=== PATIENT | female | born 1950 | race Caucasian/White ===

== ENCOUNTER 2017-07-29 12:35 | Emergency (ER) | payer MEDICARE, OTHER ==
[~2017-07-29] VITALS: Ht 172.7 cm; Wt 86.4 kg
[2017-07-29 12:35] VITALS: BP 155/84; PULSE 80; RESP 15; O2SAT 97
--- NOTE | 2017-07-29 12:38 | ED.REPORT ---
HPI-Syncope Date of Service Jul 29, 2017 ED Provider: Hari Fox MD A 67 year old female with a history of hypertension is brought to the ED via EMS due to positional dizziness. [place] when she began to experience a spinning sensation after standing. She had felt slightly unwell prior to this with a mild headache, but was not especially concerned. The dizziness began when she walked off of the bus and continued until she sat down. The spinning sensation is worsened by standing but not affected by turning her head. The pt denies difficulty speaking, numbness, weakness, chest pain, abdominal pain, shortness of breath or decreased fluid intake. Paramedics found the pt to be dizzy and diaphoretic while doing posturals. The pt fell one month ago with facial trauma, but a CT at the time was negative. Her dose of Lisinopril was cut in half by her PCP 1.5 weeks ago. She reports similar symptoms when she became hypotensive following surgery ten years ago. During our discussion when having her sit up she denies feeling tunnel vision the description of her symptoms. Nursing Notes Stated Complaint: NEAR SYNCOPE Nursing Notes Reviewed: Yes Allergies: Coded Allergies: morphine (Verified Allergy, Unknown, 07/29/17) oxycodone (Verified Adverse Reaction, Intermediate, 07/29/17) General Time Seen by Provider: 12:37 Chief Complaint Other (Dizziness) Hx Obtained From: Patient, EMS Arrived By: Ambulance Onset Occurred: 1 - 4 hours ago Symptom Duration: Intermittent Recent Healthcare: No recent hospitalization Similar Sx Previous: Yes Past Medical History Past Medical History Reports: Hypertension Past Surgical History knee surgery Reports: Appendectomy, Cholecystectomy, Hysterectomy Smoking History Unknown if Ever Smoker Social History Other Social History: Good social support Ambulatory Status Independent Review of Systems Review of Systems Note: denies decreased fluid intake denies difficulty speaking Respiratory: Denies: Non-productive cough, Shortness of breath Cardiovascular: Denies: Chest pain GI: Denies: Abdominal pain, Vomiting Skin: Reports Diaphoresis, Denies Rash Neurologic: Reports: Dizziness, Headache, Denies: Numbness, Weakness Complete sys rev & neg: except as marked. Physical Exam Initial Vital Signs Vital Signs (First) Date Time Temp Pulse Resp B/P Pulse Ox O2 Delivery O2 Flow Rate FiO2 07/29/17 12:35 36.4 80 15 155/84 97 Room Air Initial VS: Reviewed General/Constitutional: Awake, Alert sat pt up and she reported tunnel vision Respiratory / Chest: Atraumatic, Breath sounds NL, Breath sounds = bilat, No respiratory distress Cardiovascular: Heart rate NL, Regular rhythm, Heart sounds NL Lower Extremity / Pelvis / MS: Atraumatic, Full range of motion Neurologic: Oriented X3, Speech NL, No motor deficits, No sensory deficits, CN II - XII intact Head / Eyes: Atraumatic, Normocephalic, PERRL, EOMI fast phase nystagmus to the left no abnormal skew ENT: Atraumatic, Airway patent, Mucous membranes moist Neck: Atraumatic, Supple, Full range of motion Abdomen: Atraumatic, Soft, Non-tender Back: Atraumatic, Full range of motion Skin: Atraumatic, Color NL, No rash, Warm, Dry Psychiatric: Affect NL, Mood NL Upper Extremity / MS: Atraumatic, Full range of motion Interpretation & Diagnostics Interpretation & Diagnostics: CT Angiogram Chest PE: IMPRESSION: 1. No visualized pulmonary embolism. 2. Minimal appearance of increased pulmonary vascularity without consolidations or effusions. Dictated by: Esthela Simms M.D. on 07/29/2017 at 14:07 Approved by: Esthela Simms M.D. on 07/29/2017 at 14:14 Lab Results Interpretation Result Diagram: 07/29/17 1245 07/29/17 1245 Test 07/29/17 12:45 White Blood Count 12.4th/mm3 (3.8-10.1) Red Blood Count 5.13mil/mm3 (3.90-5.20) Hemoglobin 14.7g/dL (12.0-15.6) Hematocrit 43.3% (35.0-46.0) Mean Corpuscular Volume 84.4fL (81-100) Mean Corpuscular Hemoglobin 28.7pg (27.0-35.0) Mean Corpuscular Hemoglobin Concent 33.9% (32.0-37.0) Red Cell Distribution Width 13.3% (12.3-15.4) Platelet Count 307bil/L (150-400) Neutrophils (%) (Auto) 49.7% (40-74) Lymphocytes (%) (Auto) 38.3% (14-46) Monocytes (%) (Auto) 7.6% (4-12) Eosinophils (%) (Auto) 3.2% (0-5) Basophils (%) (Auto) 0.6% (0-3) D-Dimer 0.98mg/L FEU (<0.50) Sodium Level 134mEq/L (134-144) Potassium Level 4.2mEq/L (3.5-5.2) Chloride Level 93mEq/L (97-108) Carbon Dioxide Level 22mmol/L (18-29) Blood Urea Nitrogen 23mg/dL (8-27) Creatinine 1.27mg/dL (0.57-1.00) Estimat Glomerular Filtration Rate 60mL/min (>59) Glucose Level 91mg/dL (60-99) Calcium Level 9.4mg/dL (8.5-10.1) Magnesium Level 1.4mg/dL (1.6-2.6) Total Bilirubin 0.3mg/dL (0.0-1.2) Aspartate Amino Transf (AST/SGOT) 24U/L (0-50) Alanine Aminotransferase (ALT/SGPT) 23U/L (0-32) Alkaline Phosphatase 109U/L (25-165) Troponin T < 0.010ug/L (0.0-0.011) Pro-B-Type Natriuretic Peptide 100.3pg/mL (0-301) Total Protein 8.4g/dL (6.4-8.4) Albumin 4.4g/dL (3.4-5.0) ECG Interpretation ECG Interpretation: normal sinus rhythm with a rate of 72 abnormal R-wave progression, early transition Time: 13:18 Interpreted by: ED physician X-Ray Chest Interpretation Chest Xray Interpretation: IMPRESSION: Negative chest. No acute cardiopulmonary process is evident. Dictated by: Feng Narayan M.D. on 07/29/2017 at 12:05 Approved by: Feng Narayan M.D. on 07/29/2017 at 12:06 Interpretation / Wet Read by: Interpret - Radiologist CT Head Interpretation IMPRESSION: No acute intracranial abnormalities. Dictated by: Vance Bhatia M.D. on 07/29/2017 at 14:09 Approved by: Vance Bhatia M.D. on 07/29/2017 at 14:11 Interpretation / Wet Read by: Interpret - Radiologist Re-Eval/Medical Decision Med Decision/Clinical Course Neurologically intact, does not sound like a stroke, patient has positional dizziness with associated tunnel vision I suspect this is from hypovolemia, after IV fluids she is feeling much better. Instructed to follow very closely with her PCP. Return in follow-up precautions given. Re-Evaluation/Progress : Time of Eval: 14:58 Patient Status: Condition improved Re-Evaluation/Progress Note: Pt rechecked, who is comfortable. She has passed her road test. The diagnosis and plan for discharge are discussed. The pt understands and agrees with the plan. All questions are addressed at this time. Counseled Regarding: Diagnosis, Lab results, Need for follow-up, When/why to return to ED Discharge & Departure Impression: Primary Impression: Near syncope Disposition: Home Discharge Condition All VS Reviewed: Yes Condition: Stable Patient Instructions: Near Syncope (ED) Additional Instructions: Thank you for entrusting us with your care. Your evaluation was reassuring. Call your primary care physician to arrange a follow up appointment in the next several days. Return to the emergency department if you develop any new or worsening symptoms. Referrals: Mikhail Carbone Attestation Portions of this note were transcribed by Mine Stock. I, Dr. Fox personally performed the history, physical exam and medical decision-making; I reviewed and confirmed the accuracy of the information in the transcribed note. copies to: Mikhail Carbone Timothy S DO Jul 29, 2017 12:38 MINE STOCK Jul 29, 2017 12:51
[2017-07-29] MEDS ORDERED: 0.9% Sodium Chloride 1,000 ML IV ONE (12:49)
[2017-07-29 12:57] LABS: BASOPHILS % (AUTO) 0.6 % (0-3); EOSINOPHILS % (AUTO) 3.2 % (0-5); MONOCYTES % (AUTO) 7.6 % (4-12); Mean Corpuscular Hemoglobin 28.7 pg (27.0-35.0); Mean Corpuscular Volume 84.4 fL (81-100); NEUTROPHILS % (AUTO) 49.7 % (40-74); Platelet Count 307 bil/L (150-400)
--- NOTE | 2017-07-29 13:08 | DRSVH ---
PROCEDURE: X-RAY CHEST ONE VIEW, PORTABLE ([id number]) INDICATIONS: near syncope TECHNIQUE: One view of the chest was acquired. COMPARISON: None. FINDINGS: Surgical changes and devices: Metallic clips are seen within the upper abdomen. Lungs and pleura: No pleural effusions or pneumothorax. Lungs are clear. Mediastinum: Mediastinal contours appear normal. Heart size is normal. Bones and chest wall: No suspicious bony lesions. Mild dextroconvex curvature of the thoracic spine is present. Overlying soft tissues appear unremarkable. IMPRESSION: Negative chest. No acute cardiopulmonary process is evident. Dictated by: Feng Narayan M.D. on 07/29/2017 at 12:05 Approved by: Feng Narayan M.D. on 07/29/2017 at 12:06
[2017-07-29 13:17] VITALS: BP 118/61; PULSE 73; RESP 11; O2SAT 96
[2017-07-29 13:19] VITALS: BP 139/85; PULSE 84; RESP 20; O2SAT 98
[2017-07-29 13:23] LABS: Magnesium 1.4 mg/dL (1.6-2.6)
[2017-07-29 13:26] LABS: TROPONIN T < 0.010 ug/L (0.0-0.011)
[2017-07-29] MEDS ORDERED: Magnesium Sulf 2 Gm/50mL Water 2 GM in IV Premix 1 EACH IV ONE (13:30)
--- NOTE | 2017-07-29 14:13 | DRSVH ---
PROCEDURE: CT BRAIN WITHOUT CONTRAST ([id number]) INDICATIONS: 67 year-old female with near syncope and headaches. TECHNIQUE: Noncontrast 4.5 mm thick angled axial sections acquired from the foramen magnum to the vertex, with c oronal reformats. COMPARISON: None. FINDINGS: Image quality: Excellent. CSF spaces: Basal cisterns are patent. No extra-axial fluid collections. Ventricles are normal in size and shape. Brain: No midline shift. No intracranial masses or hemorrhage. Mendoza-white matter interface is norm al. Skull and face: Calvarium and visualized facial bones are intact, without suspicious lesions. Sinuses: Visualized sinuses and mastoids are clear. IMPRESSION: No acute intracranial abnormalities. Dictated by: Vance Bhatia M.D. on 07/29/2017 at 14:09 Approved by: Vance Bhatia M.D. on 07/29/2017 at 14:11
--- NOTE | 2017-07-29 14:15 | DRSVH ---
PROCEDURE: CT ANGIO CHEST PULMONARY EMBOLISM ([id number]) INDICATIONS: near syncope elevated ddimer TECHNIQUE: After the administration of intravenous contrast, 2 mm thick sections acquired from the pulmonary api tiffanie to the posterior costophrenic angles. 3-dimensional maximum intensity projection (MIP) coronal a nd sagittal reformats were then acquired through the thorax. For radiation dose reduction, the follo wing was used: automated exposure control, adjustment of mA and/or kV according to patient size. COMPARISON: None. FINDINGS: Image quality: Excellent. Pulmonary arteries: Pulmonary arteries are normal in size, and demonstrate no intraluminal filling d efects to suggest central pulmonary embolism. Lungs and pleura: There is a minimal appearance of increased pulmonary vascularity. No effusions or c onsolidations. Mediastinum: Heart size is normal, without pericardial effusion. No mediastinal or hilar adenopathy . Thoracic aorta is normal in caliber and enhancement. Esophagus is normal in caliber, without hiat al hernia. Bones and chest wall: No suspicious bony lesions. Ribs and thoracic spine appear intact throughout. Thyroid gland is unremarkable. No axillary or supraclavicular adenopathy. Abdomen: Visualized upper abdominal solid organs appear normal in the early arterial phase of enhanc ement. IMPRESSION: 1. No visualized pulmonary embolism. 2. Minimal appearance of increased pulmonary vascularity without consolidations or effusions. Dictated by: Esthela Simms M.D. on 07/29/2017 at 14:07 Approved by: Esthela Simms M.D. on 07/29/2017 at 14:14
[2017-07-29 14:36] VITALS: BP 145/72; PULSE 76; RESP 12; O2SAT 98
[2017-07-29 15:32] VITALS: BP 123/71; PULSE 77; RESP 22; O2SAT 93
== END 2017-07-29 15:34 | disposition home or self-care (01) ==
LOC: EDBD 12:35 → SED 12:35
DX: R55 Syncope and collapse (principal); R51 Headache; I10 Essential (primary) hypertension; Z88.5 Allergy status to narcotic agent
CPT/HCPCS: 36415; 70450; 71010; 71275; 80053; 83735; 83880; 84484; 85025; 85378; 93005; 96361; 96365; 99285; J7030; Q9967